=== PATIENT | female | born 1985 | race Caucasian/White ===

== ENCOUNTER 2022-04-18 09:43 | Emergency (ER) | payer MEDICAID, SELFPAY ==
[2022-04-18 09:45] VITALS: BP 118/77; PULSE 82; RESP 18; TEMP 36.5; O2SAT 98; BMI 30.3
--- NOTE | 2022-04-18 09:46 | CRLHL7_ITS ---
For Patients: As a result of the Century Cures Act, medical imaging exams and procedure reports are released immediately into your electronic medical record. You may view this report before your referring provider. If you have questions, please contact your health care provider. INDICATION: Bleeding in early . TECHNIQUE: Transvaginal early obstetrical ultrasound. FINDINGS: The uterus is empty. There is no gestational sac or yolk sac. There is no evidence for products of conception within the endometrial canal. The endometrial stripe measures up to 18 mm. Clinical correlation as well as correlation with beta HCG recommended. The right ovary measures 5.2 x 2.4 x 2.8 cm. The right ovary contains an echogenic focus measuring 1.9 x 1.1 x 1.4 cm which could reflect a right ovarian dermoid. This will require follow-up as well. The left ovary measures 3.6 x 2.3 x 2.5 cm and is within normal limits. No free pelvic fluid. No adnexal mass. IMPRESSION: 1. There is no evidence for living intrauterine . There is no evidence for an adnexal mass. 2. Thickened somewhat heterogeneous endometrial stripe measuring up to 18 mm. Follow-up ultrasound is recommended. Clinical correlation as well as correlation with serial beta HCGs recommended. 3. Echogenic focus right ovary could reflect a dermoid. Consider CT or MRI when the clinical picture allows. Dictated by Derek Velez MD @ 04/18/2022 11:15:02 AM (Electronically Signed)
[2022-04-18 10:22] VITALS: BP 128/80; PULSE 79; RESP 18; O2SAT 98
[2022-04-18 10:25] LABS: Basophils Absolute Auto 0.04 K/uL (0.00-0.30); Basophils Percent Auto 0.6 % (0.0-3.0); Eosinophils Absolute Auto 0.06 K/uL (0.00-0.50); Eosinophils Percent Auto 0.8 % (0.0-7.0); Hematocrit 40.6 % (33.0-51.0); Hemoglobin* 14.1 gm/dL (12.0-16.0); Lymphocytes Absolute Auto 2.09 K/uL (0.90-2.90); Lymphocytes Percent Auto 29.6 % (20-44); Mean Corpuscular HGB Conc 35 gm/dL (32-36); Mean Corpuscular Hemoglobin 32 pg (26-34); Mean Corpuscular Volume 91 fL (80-100); Monocytes Percent Auto 6.1 % (0.0-11.0); Neutrophils Absolute Auto 4.45 K/uL (1.7-7.0); Neutrophils Percent Auto 62.9 % (42.0-72.0); Platelet Count* 365 K/uL (140-440); RDW Coefficient of Variation % 12.5 % (11.5-15.5); Red Blood Count 4.46 m/uL (4.00-5.20); White Blood Count* 7.07 K/uL (4.50-11.00)
--- NOTE | 2022-04-18 10:25 | ED.GENADULT ---
HPI - General Adult General Time Seen by Provider: 10:26 Date Seen: 04/18/22 Chief complaint: Vaginal Bleeding Stated complaint: 7 weeks heavy bleeding Time Seen by Provider: 04/18/22 09:44 Source: patient Mode of arrival: ambulatory Limitations: no limitations History of Present Illness HPI narrative: Patient is a 36-year-old female with her 5th , at about 7 weeks estimated gestational age by LMP, who reports that she passed a lot of tissue last night, has some low back pain and cramping continues to have vaginal bleeding today and presents to the ED. the patient reports her blood type is Rh negative, and she has received program in the past with pregnancies. The patient denies lightheadedness dizziness, chest pain, bleeding has slowed. Still occasional cramping in her low back. No fevers or chills. No chest pain or shortness of breath Related Data Allergies Allergy/AdvReac Type Severity Reaction Status Date / Time No Known Drug Allergies Allergy Verified 04/18/22 09:52 Review of Systems Status of ROS: Reports: 6 or more systems reviewed and unremarkable except as noted in History and below PFSH PFS Social History Smoking Status: Never smoker Do you use any of these nicotine containing products: None Second hand tobacco smoke exposure: No How often do you have a drink containing alcohol: never How often do you have six or more drinks on one occasion: Never AUDIT-C Alcohol total score: 0 Non-prescribed substance use: denies use service: No Exam Narrative: Exam Narrative: Objective: Patient's vital signs unremarkable she is in no apparent distress very pleasant Pulses regular Abdomen soft benign nontender Extremities are no edema Neurologic nonfocal Ultrasound of the pelvis was performed transvaginally there is only some intrauterine blood noted, no viable noted. Const: Vital Signs, click to edit/add: Vital Signs - 24 hr 04/18/22 09:45 04/18/22 10:22 04/18/22 11:46 Temperature 97.7 F 97.6 F Pulse Rate 80 Pulse Rate [Right Pulse Oximeter] 82 79 Respiratory Rate 18 18 16 Blood Pressure 120/82 Blood Pressure [Ri ght Upper Arm] 118/77 128/80 Pulse Oximetry 98 98 Oxygen Delivery Me thod Room Air Room Air Course Vital Signs Vital signs: Initial Vital Signs Temperature 97.7 F 11/09/22 09:45 Temperature Source Temporal Artery Scan 04/18/22 09:45 Pulse Rate 82 04/18/22 09:45 Respiratory Rate 18 04/18/22 09:45 Blood Pressure 118/77 04/18/22 09:45 Blood Pressure Mean 90 04/18/22 09:45 Blood Pressure Position Sitting 04/18/22 09:45 Pulse Oximetry 98 04/18/22 09:45 Oxygen Delivery Method 04/18/22 09:45 Vital Signs Temperature 97.7 F 04/18/22 09:45 Pulse Rate 82 04/18/22 09:45 Respiratory Rate 18 04/18/22 09:45 Blood Pressure 118/77 04/18/22 09:45 Pulse Oximetry 98 04/18/22 09:45 Oxygen Delivery Method 04/18/22 09:45 Temperature 97.6 F 04/18/22 11:46 Pulse Rate 80 04/18/22 11:46 Respiratory Rate 16 04/18/22 11:46 Blood Pressure 120/82 04/18/22 11:46 Pulse Oximetry 98 04/18/22 10:22 Oxygen Delivery Method 04/18/22 10:22 Medical Decision Making MDM Narrative Medical decision making narrative: Given the patient's Rh negative status will need RhoGAM, she will need followup with Ob doctor in the next couple of days, she likely is had miscarriage. This needs to be confirmed with a follow-up HCG. Currently she is not lightheaded and has stable vital signs. I think she probably can go home, light activity, rest, update primary care OB doctor in the next 24 hours certainly sooner changes or concerns. Follow up in 2 days Addendum patient's blood type is Rh negative, RhoGAM was given. Patient is hemodynamically stable. Recommend light activity, update primary care doctor OB in the next day, follow up in 2 days for repeat hCG. Lab Data Labs: Lab Results 04/18/22 04/18/22 04/18/22 Range/Units 10:15 10:15 10:15 WBC 7.07 (4.50-11.00) K/uL RBC 4.46 (4.00-5.20) m/uL Hgb 14.1 (12.0-16.0) gm/dL Hct 40.6 (33.0-51.0) % MCV 91 (80-100) fL MCH 32 (26-34) pg MCHC 35 (32-36) gm/dL RDW Coeff of Freddy 12.5 (11.5-15.5) % Plt Count 365 (140-440) K/uL Neut % (Auto) 62.9 (42.0-72.0) % Lymph % (Auto) 29.6 (20-44) % [place] % (Auto) 6.1 (0.0-11.0) % Eos % (Auto) 0.8 (0.0-7.0) % Baso % (Auto) 0.6 (0.0-3.0) % Neut # (Auto) 4.45 (1.7-7.0) K/uL Lymph # (Auto) 2.09 (0.90-2.90) K/uL [place] # (Auto) 0.40 (0.00-0.90) K/UL Eos # (Auto) 0.06 (0.00-0.50) K/uL Baso # (Auto) 0.04 (0.00-0.30) K/uL Abs Immat Gran (auto) 0.00 (0.00-0.30) K/uL Imm/Tot Granulo (auto) 0.0 % Sodium 137 (135-149) mmol/L Potassium 3.9 (3.6-5.1) mmol/L Chloride 101 (96-114) mmol/L Carbon Dioxide 23 (20-32) mmol/L BUN 13 (5-24) mg/dL Creatinine 0.7 (0.5-1.5) mg/dL Estimated Creat Clear 99.01 Estimated GFR 114 ml/min Glucose 94 (60-115) mg/dL Calcium 9.1 (8.4-10.6) mg/dL HCG, Quant 5227.80 mIU/mL Blood Type O Negative Screen 04/18/22 Range/Units 10:15 WBC (4.50-11.00) K/uL RBC (4.00-5.20) m/uL Hgb (12.0-16.0) gm/dL Hct (33.0-51.0) % MCV (80-100) fL MCH (26-34) pg MCHC (32-36) gm/dL RDW Coeff of Freddy (11.5-15.5) % Plt Count (140-440) K/uL Neut % (Auto) (42.0-72.0) % Lymph % (Auto) (20-44) % [place] % (Auto) (0.0-11.0) % Eos % (Auto) (0.0-7.0) % Baso % (Auto) (0.0-3.0) % Neut # (Auto) (1.7-7.0) K/uL Lymph # (Auto) (0.90-2.90) K/uL [place] # (Auto) (0.00-0.90) K/UL Eos # (Auto) (0.00-0.50) K/uL Baso # (Auto) (0.00-0.30) K/uL Abs Immat Gran (auto) (0.00-0.30) K/uL Imm/Tot Granulo (auto) % Sodium (135-149) mmol/L Potassium (3.6-5.1) mmol/L Chloride (96-114) mmol/L Carbon Dioxide (20-32) mmol/L BUN (5-24) mg/dL Creatinine (0.5-1.5) mg/dL Estimated Creat Clear Estimated GFR ml/min Glucose (60-115) mg/dL Calcium (8.4-10.6) mg/dL HCG, Quant mIU/mL Blood Type Screen TNP Discharge Plan Discharge Clinical Impression: Miscarriage, threatened, early Patient Disposition: Home w/ Parent or Adult Condition: Stable Additional Instructions: Light activity, update primary care OB in 1 day, follow up in 2 days with OB care. Return to ED sooner problems concerns, dizziness, lightheadedness, bleeding that gets heavier. RhoGAM given. Needs repeat hormone in 2 days [facility] 8:45am for labs. Your follow up appointment is also scheduled on 04/20 at 9am. Activity Level: No strenuous activity Discharge Diet: Regular Stand Alone Forms: MyHealth Info Instructions
[2022-04-18 10:27] LABS: Slide Review Reflex No
--- OUTSIDE RECORDS SUMMARY | 2022-04-18 10:29 | XMS_ITS | Clinical Summary ---
:1985 Author Organization [employer] [facility] [place] [address] Care Team Providers Name Role Phone Deisy Dexter MD Primary Care Provider Allergies No known active allergies Medications Medication Sig Dispensed Refills Start Date End Date Status benzonatate Take 1 Capsule 21 Capsule 0 03/21/2022 A ctive (TESSALON) 100 mg (100 mg) by capsuleIndications: mouth 3 times Post-viral cough daily if needed syndrome for Cough. omeprazole 20 mg Take 1 Tablet 30 Tablet 0 03/21/2022 Active tabletIndications: (20 mg) by mouth Chronic GERD once daily before a meal. amoxicillin-clavulan Take 1 Tablet by 10 Tablet 0 03/21/2022 1 ate 875-125 mg mouth two times tablet daily with meals (AUGMENTIN)Indicatio for 5 days. ns: Acute bacterial sinusitis Active Problems Problem Noted Date IUD (intrauterine device) in place 08/16/2014 Overview: Replaced 2018 - Mirena Migraine 04/08/2009 Encounters Date Type Specialty Care Team Description 04/18/2022 Travel 04/18/2022 Nurse Triage Julissa Vidal DO [place] Problem 03/21/2022 Office Visit Julissa Vidal DO Cough ( Chest pain and shortness of br eathe when coughing ); Per son Under Investigation ( PUI) (Symptoms for 3 weeks, a few negative COVID-19 tests ); Nose Problem (Runny nose, has a sore on cartila ge of nostrils that is sore); Throat Problem (Sore throat ); Nausea 03/21/2022 Travel 02/23/2022 Office Visit America Perez, Referr brooklynn (tubal ligation) [place] 02/23/2022 Travel from Last 3 Months Immunizations Name Administration Dates Next Due AMB Influenza, IIV4 PF (=>6 mos Flulaval,Fluzone 03/17/2020, 05/20/2019 Fluarix)(Flu Clinic Only) COVID-19 vaccine (Moderna 100mcg/0.5mL) PF, MDV 09/01/2020, 08/03/2020 HepA-HepB (Twinrix) 09/20/2011, 04/23/2011 Influenza, IIV3 (Age >=3 years) 04/17/2007, 04/15/2002 Influenza, IIV4 04/11/2021, 06/08/2016 Td (Age >=7 Years) 01/28/2020 Tdap 05/17/2008 Tuberculin (PPD) 04/17/2011, 08/01/2009 Varicella Vaccine 04/23/2011 Family History Medical History Relation Name Comments Diabetes Maternal Grandfather Cancer-ovarian Mother not cerain age o f diagnosis as she orozco not have contact wit h her mother Cancer Paternal Grandmother stomach Relation Name Status Comments Maternal Grandfather Mother Paternal Grandmother Social History Tobacco Use Types Packs/Day Years Used Date Never Smoker Smokeless Tobacco: Never Used Tobacco Cessation: Counseling Given: Yes Alcohol Use Standard Drinks/Week Comments No 0 (1 standard drink = 0.6 oz pure alcoho l) Sex Assigned at Date Recorded Not on file COVID-19 Exposure Response Date Recorded In the last 10 days, have you been in contact with No / Unsu re 04/18/2022 7:51 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 Obstetrics History Para Term AB IAB SAB Ectopic Multiple Living Live Births 4 3 2 1 1 3 1 Date Outcome GA Total Labor/2nd/3rd Weight Sex Delivery Anes PTL Helen A 1 A5 Name Clin Labor 09/05 Term 40w F Peace 0d sa Vazqu ez 06/22 32w M /2002 0d 03/04 Term 38w 2.81 kg F Vag Amee 5d (6 lb 3 ng oz) Comments: induced due to rising ur ic acid levels and symptoms of swelling 05/09/2011 AB 7w0d Last Filed Vital Signs Vital Sign Reading Time Taken Comments Blood Pressure 126/89 03/21/2022 10:04 AM CDT Pulse 82 03/21/2022 10:04 AM CDT Temperature 36.8 ??C (98.2 ??F) 03/21/2022 10:04 AM CDT Respiratory Rate 20 04/23/2011 12:58 PM UNIVERSAL WORKER ASSISTED LIVING Oxygen Saturation 98% 03/21/2022 10:04 AM CDT Inhaled Oxygen Concentration - - Weight 82.4 kg (181 lb 9.6 oz) 02/23/2022 1:35 PM CDT Height 165.1 cm (5' 5) 04/11/2021 7:53 AM CDT Body Mass Index 30.22 04/11/2021 7:53 AM CDT Plan of Treatment Health Maintenance Due Date Last Done Comments Hepatitis C screening for age 0409/30/2002 18-79 COVID-19 vaccine series (3 - 10/27/2020 09/01/2020, 021 Booster for Moderna series) Influenza for age 9-49 02/08/2022 04/11/2021, 03/17/2020, 05/20/2019, Additional history exists BMI (ht and wt on same day) for 04/11/2022 04/11/2021, 04/0 11/2020, age 18+ 01/28/2020, Additional history exists Depression screening for age 12+ 04/11/2022 04/11/2021, , 01/08/2019, Additional history exists Pap test for age 21-65 04/11/2026 04/11/2021, 04/11/2021, 11/21/2017, Additional history exists Tetanus booster 01/27/2030 01/28/2020, 05/17/2008 Tdap Completed 05/17/2008 Procedures Procedure Name Priority Date/Time Associated Diagnosis Comme nts URINE Routine 03/21/2022 10:44 AM Medication monitor ing Results for this CDT encounter procedure are i n the results section. from Last 3 Months Results URINE (03/21/2022 10:44 AM CDT) [facility] Time Signature ,URIN Negative Negative 03/21/2022 [employer] E 10:56 AM CDT [facility] Specimen Anatomical Collection Method Collection Time Receive d Time (Source) Location / / Volume Laterality Urine URINE SPECIMEN / Non-Blood / 03/21/2022 10:44 022 Unknown Unknown AM CDT 10:51 AM CDT Julissa Vidal DO URINE Performing Organization Address City/State/ZIP Code Phon e Number [facility] [address] [place] [address] from Last 3 Months Insurance Payer Benefit Plan / Subscriber ID Effective Dates Phone Addre ss Type Group [employer] MA CIRO NUNEZ [id number] 2021-Present [address] [place] [address] Care Teams Solar/Renewable Energy Sales Relationship Specialty Start Date End Date Deisy Dexter MD PCP - General 08/27/06 [address] [place] [address]
[2022-04-18 10:38] LABS: Chloride* 101 mmol/L (96-114); Potassium* 3.9 mmol/L (3.6-5.1); Sodium* 137 mmol/L (135-149)
[2022-04-18 10:41] LABS: Blood Urea Nitrogen* 13 mg/dL (5-24); Carbon Dioxide* 23 mmol/L (20-32); Creatinine* 0.7 mg/dL (0.5-1.5); Est. Creatinine Clearance* 99.01; Estimated Glomerular Filt Rate 114 ml/min; Glucose* 94 mg/dL (60-115)
[2022-04-18 10:42] LABS: Calcium* 9.1 mg/dL (8.4-10.6)
[2022-04-18 11:46] VITALS: BP 120/82; PULSE 80; RESP 16; TEMP 36.4
== END 2022-04-18 11:55 | disposition home or self-care (01) ==
PROVIDERS: Emergency Provider Family Medicine
DX: O20.0 Threatened abortion (principal); Z3A.01 Less than 8 weeks gestation of pregnancy
CPT/HCPCS: 36415; 76817; 80048; 84702; 85025; 85461; 86900; 86901; 96372; 99284; J2791

== ENCOUNTER 2022-04-20 08:58 | Outpatient (CLI) | payer MEDICAID, SELFPAY ==
--- OUTSIDE RECORDS SUMMARY | 2022-04-20 09:03 | XMS_ITS | Clinical Summary ---
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 was confirmed or suspected to [...] CDT Respiratory Rate 20 04/23/2011 12:58 PM CATALYST SUPERVISOR Oxygen Saturation 98% 03/21/2022 10:04 AM CDT [...] 10:44 AM CDT) [facility] Time Signature ,URIN Negative Negative 03/21/2022 [facility] E 10:56 AM CDT [facility] Specimen Anatomical Collection Method Collection Time Receive d Time (Source) Location / / Volume Laterality Urine URINE SPECIMEN / Non-Blood / 03/21/2022 10:44 022 Unknown Unknown AM CDT 10:51 AM CDT Julissa Vidal DO URINE Performing Organization Address City/State/ZIP Code Phon e Number [facility] [address] [place] [address] from Last 3 Months Insurance Payer Benefit Plan / Subscriber ID Effective Dates Phone Addre ss Type Group [employer] MA CIRO NUNEZ [id number] 2021-Present [address] [place] [address] Care Teams Case Technician Relationship Specialty Start Date End Date Deisy Dexter MD PCP - General 08/27/06 [address] [place] [address]
== END 2022-04-20 08:59 | disposition home or self-care (01) ==
PROVIDERS: Visit Provider Obstetrics & Gynecology
DX: O20.0 Threatened abortion (principal)
CPT/HCPCS: 84702

== ENCOUNTER 2022-04-27 09:47 | Outpatient (CLI) | payer MEDICAID, SELFPAY ==
--- OUTSIDE RECORDS SUMMARY | 2022-04-27 09:49 | XMS_ITS | Clinical Summary ---
:1985 Author Organization [employer] [facility] [place] [address] Care Team Providers Name Role Phone Deisy Dexter MD Primary Care Provider Allergies No known active allergies Medications Medication Sig Dispensed Refills Start Date End Date Status benzonatate (TESSALON) Take 1 Capsule 21 Capsule 0 03/21/2022 Active 100 mg (100 mg) by mouth capsuleIndications: 3 times daily if Post-viral cough needed for Cough. syndrome omeprazole 20 mg Take 1 Tablet (20 30 Tablet 0 03/21/2022 Active tabletIndications: mg) by mouth once Chronic GERD daily before a meal. Active Problems Problem Noted Date IUD (intrauterine device) in place 08/16/2014 Overview: Replaced 2018 - Mirena Migraine 04/08/2009 Encounters Date Type Specialty Care Team Description 04/25/2022 Nurse/Clinic Staff Immunizat ion/Injection Only (COVID-19 vacci ne) 04/25/2022 Travel 04/18/2022 Travel 04/18/2022 Nurse Triage Julissa Vidal, Problem DO 03/21/2022 Office Visit Julissa Vidal Helen, Cough (Abby st pain and DO shortness of br eathe when coughing ); Per son Under Investigation ( PUI) (Symptoms for 3 weeks, a few negative CO VID-19 tests ); Nose P roblem (Runny nose, fernandes s a sore on cartilage of no strils that is sore); Throa t Problem (Sore throat ); Nausea 03/21/2022 Travel 02/23/2022 Office Visit America Perez Referral (tub al ligation) RAJAT Morse 02/23/2022 Travel from Last 3 Months Immunizations Name Administration Dates Next Due AMB Influenza, IIV4 PF (=>6 mos 03/17/2020, 05/20/2019 Flulaval,Fluzone Fluarix)(Flu Clinic Only) COVID-19 vaccine (Moderna 100mcg/0.5mL) 09/01/2020, 08/03/19 21 PF, MDV COVID-19 vaccine ([employer] 04/25/2022 30mcg/0.3mL) 12YO+ BIVALENT BOOSTER PF, MDV HepA-HepB (Twinrix) 09/20/2011, 04/23/2011 Influenza, IIV3 (Age >=3 years) 04/17/2007, 04/15/2002 Influenza, IIV4 04/25/2022, 04/11/2021, 06/08/2016 Td (Age >=7 Years) 01/28/2020 [...] 10 days, have you been in contact No / Unsure 04/25/2022 10:16 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 Obstetrics History Para Term AB IAB SAB Ectopic Multiple Living Live Births 4 3 2 1 1 3 1 Date Outcome GA Total Labor/2nd/3rd Weight Sex Delivery Anes PTL Helen A 1 A5 Name Clin Labor 09/05 Term 40w F Peace /2000 0d sa Vazqu ez 06/22 32w /2002 0d 03/04 Term 38w 2.81 kg F Vag Amee /2006 5d (6 lb 3 ng oz) Comments: induced due to rising ur ic acid levels and symptoms of swelling 05/09/2011 AB 7w0d Last Filed Vital Signs Vital Sign Reading Time Taken Comments Blood Pressure 126/89 03/21/2022 10:04 AM CDT Pulse 82 03/21/2022 10:04 AM CDT Temperature 36.8 ??C (98.2 ??F) 03/21/2022 10:04 AM CDT Respiratory Rate 20 04/23/2011 12:58 PM BLACK ASH BURNER OPERATOR Oxygen Saturation 98% 03/21/2022 10:04 AM CDT Inhaled Oxygen Concentration - - Weight 82.4 kg (181 lb 9.6 oz) 02/23/2022 1:35 PM CDT Height 165.1 cm (5' 5) 04/11/2021 7:53 AM CDT Body Mass Index 30.22 04/11/2021 7:53 AM CDT Plan of Treatment Health Maintenance Due Date Last Done Comments Hepatitis C screening for age 0409/30/2002 18-79 BMI (ht and wt on same day) for 04/11/2022 04/11/2021, 04/0 11/2020, age 18+ 01/28/2020, Additional history exists Depression screening for age 12+ 04/11/2022 04/11/2021, , 01/08/2019, Additional history exists Pap test for age 21-65 04/11/2026 04/11/2021, 04/11/2021, 11/21/2017, Additional history exists Tetanus booster 01/27/2030 01/28/2020, 05/17/2008 Tdap Completed 05/17/2008 HIV for age 15-65 Completed 08/16/2014, 11/05/2013, 01/06/2010 COVID-19 vaccine series Completed 04/25/2022, 09/01/2020, 08/03/2020 Influenza for age 9-49 Completed 04/25/2022, 04/11/2021, 03/17/2020, Additional history exists Procedures Procedure Name Priority Date/Time Associated Diagnosis Comme nts URINE Routine 03/21/2022 10:44 AM Medication monitor ing Results for this CDT encounter procedure are i n the results section. from Last 3 Months Results URINE (03/21/2022 10:44 AM CDT) Analysis Performed At Patho logist Time Signature ,URIN Negative Negative 03/21/2022 [facility] E 10:56 AM CDT [facility] Specimen Anatomical Collection Method Collection Time Receive d Time (Source) Location / / Volume Laterality Urine URINE SPECIMEN / Non-Blood / 03/21/2022 10:44 022 Unknown Unknown AM CDT 10:51 AM CDT Julissa Vidal DO URINE Performing Organization Address City/State/ZIP Code Phon e Number [facility] [address] [place] [address] from Last 3 Months Insurance Payer Benefit Plan / Subscriber ID Effective Dates Phone Addre ss Type Group UCARE ENRIQUE BELLAROXI NUNEZ [id number] 2021-Present [address] [place] [address] Care Teams Craft Center Director Relationship Specialty Start Date End Date Deisy Dexter MD PCP - General 08/27/06 [address] [place] [address]
== END 2022-04-27 09:48 | disposition home or self-care (01) ==
LOC: NFLDREF 09:47
PROVIDERS: Visit Provider Obstetrics & Gynecology
DX: O20.0 Threatened abortion (principal)
CPT/HCPCS: 84702

== ENCOUNTER 2022-05-04 00:03 | Outpatient (CLI) | payer MEDICAID, SELFPAY ==
--- OUTSIDE RECORDS SUMMARY | 2022-05-04 08:27 | XMS_ITS | Clinical Summary ---
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 was confirmed or suspected [...] CDT Respiratory Rate 20 04/23/2011 12:58 PM LEGAL EXECUTIVE ASSISTANT Oxygen Saturation 98% 03/21/2022 10:04 AM CDT [...] logist Time Signature ,URIN Negative Negative 03/21/2022 [facility] E 10:56 AM CDT [facility] Specimen Anatomical Collection Method Collection Time Receive d Time (Source) Location / / Volume Laterality Urine URINE SPECIMEN / Non-Blood / 03/21/2022 10:44 022 Unknown Unknown AM CDT 10:51 AM CDT Julissa Vidal DO URINE Performing Organization Address City/State/ZIP Code Phon e Number [facility] [address] [place] [address] from Last 3 Months Insurance Payer Benefit Plan / Subscriber ID Effective Dates Phone Addre ss Type Group [employer] ENRIQUE BELLAROXI NUNEZ [id number] 2021-Present [address] [place] [address] Care Teams Shipping And Receiving Clerk Relationship Specialty Start Date End Date Deisy Dexter MD PCP - General 08/27/06 [address] [place] [address]
[2022-05-04 12:59] LABS: HCG Quantitative* 12.17 mIU/mL
== END 2022-05-04 00:04 | disposition home or self-care (01) ==
LOC: NFLDREF 08:25
PROVIDERS: Visit Provider Obstetrics & Gynecology
DX: O20.0 Threatened abortion (principal)
CPT/HCPCS: 84702

== ENCOUNTER 2022-05-11 13:33 | Outpatient (CLI) | payer MEDICAID, SELFPAY ==
--- OUTSIDE RECORDS SUMMARY | 2022-05-11 08:38 | XMS_ITS | Clinical Summary ---
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 who was confirmed or suspected [...] CDT Respiratory Rate 20 04/23/2011 12:58 PM ARBORIST REPRESENTATIVE Oxygen Saturation 98% 03/21/2022 10:04 AM CDT [...] logist Time Signature ,URIN Negative Negative 03/21/2022 [facility] E 10:56 AM CDT [facility] Specimen Anatomical Collection Method Collection Time Receive d Time (Source) Location / / Volume Laterality Urine URINE SPECIMEN / Non-Blood / 03/21/2022 10:44 022 Unknown Unknown AM CDT 10:51 AM CDT Julissa Vidal DO URINE Performing Organization Address City/State/ZIP Code Phon e Number [facility] [address] [place] [address] from Last 3 Months Insurance Payer Benefit Plan / Subscriber ID Effective Dates Phone Addre ss Type Group [employer] ENRIQUE BELLAROXI NUNEZ [id number] 2021-Present [address] [place] [address] Care Teams Mine Patrol Relationship Specialty Start Date End Date Deisy Dexter MD PCP - General 08/27/06 [address] [place] [address]
[2022-05-11 12:04] LABS: HCG Quantitative* < 2.39 mIU/mL
== END 2022-05-11 13:34 | disposition home or self-care (01) ==
PROVIDERS: Visit Provider Obstetrics & Gynecology
DX: O03.9 Complete or unspecified spontaneous abortion without complication (principal)
CPT/HCPCS: 84702